=== PATIENT | male | born 2000 | race Caucasian/White ===

== ENCOUNTER → 2018-03-01 | Outpatient (CLI) | payer OTHER ==
[~2018-03-01] MED LIST: GADAVIST IV PRN
--- NOTE | 2018-03-01 14:03 | DIAGNOSTIC IMAGING REPORT ---
FLUOROSCOPIC GUIDED LEFT SHOULDER ARTHROGRAM FLUOROSCOPY TIME: 3 seconds. HISTORY: Left shoulder pain.. PROCEDURE: After obtaining written informed consent, the patient was placed supine on the fluoroscopy table. A suitable site for needle insertion was marked using fluoroscopic guidance. The left shoulder was prepped and draped in the usual sterile fashion. 1% lidocaine was used for skin, subcutaneous and deep soft tissue anesthesia. Under intermittent fluoroscopic guidance, a 22 gauge 2.5 inch spinal needle was inserted into the left glenohumeral joint. A total of 14 cc of one-to-one mixture of dilute Gadavist and Optiray 300 were injected. The needle was then removed. There were no apparent complications. The patient was transported to MR for further imaging. IMPRESSION: Fluoroscopic-guided left shoulder arthrogram without immediate complication. Total injected volume was 14 cc. MR portion of the examination will be dictated separately. Electronically signed by: Everardo Bergeron M.D. 03/01/2018 2:02 PM Dictated Date/Time: 03/01/2018 2:02 PM
--- NOTE | 2018-03-01 15:00 | DIAGNOSTIC IMAGING REPORT ---
L UPPER EXT JOINT WITH CLINICAL HISTORY: 17 years-old Male with LABRAL TEAR OF L SHOULDER. Acute left shoulder pain with history of vascular injury with forced abduction. Concern for acute labral tear. COMPARISON: None. TECHNIQUE: Multiplanar, multi sequence MRI of the left shoulder was performed following the intra-articular administration of solution containing gadolinium FINDINGS: ROTATOR CUFF: The tendons of the rotator cuff including the supraspinatus, infraspinatus, teres minor and subcapularis are intact. The rotator cuff musculature is normal in morphology and signal. BICEPS TENDON: The long-head biceps tendon is intact. No evidence of tendinosis. The biceps yulisa and anchor are intact. LABRUM: There is mild irregularity of the anteroinferior portions of the labrum nicely seen on images 9, 10 and 11 of series 5 with linear extension of contrast compatible with tear. There is no evidence for a paralabral cyst. There is suggestion of a small displaced labral fragment adjacent to the anteroinferior labrum, 3 mm. GLENOHUMERAL JOINT: The articular cartilage overlying the glenoid fossa is unremarkable. There is no loose body or debris present within the glenohumeral joint. ACROMIOCLAVICULAR JOINT: The AC joint is intact without significant degenerative change or mass effect. No evidence of os acromiale. No subacromial/subdeltoid bursitis. OUTLET SPACES: The suprascapular notch and quadrilateral space are without obstructing or space occupying lesions. BONE MARROW: No focal abnormality, fracture or marrow occupying lesion. SOFT TISSUES: The periarticular soft tissues are unremarkable. IMPRESSION: 1. Tear of the anteroinferior labrum. 2. Long head biceps tendon and rotator cuff appear unremarkable. 3. No acute fracture or focal bone marrow edema. The above report was generated using voice recognition software. It may contain grammatical, syntax or spelling errors. Electronically signed by: Lalo Sher M.D. 03/01/2018 2:59 PM Dictated Date/Time: 03/01/2018 2:39 PM
== END | disposition home or self-care (01) ==
LOC: C.MRIBC 12:30
PROVIDERS: ATTEND Family Medicine
DX: M25.312 Other instability, left shoulder (principal); S43.439A Superior glenoid labrum lesion of unspecified shoulder, initial encounter; X58.XXXA Exposure to other specified factors, initial encounter

== ENCOUNTER 2018-03-03 20:30 | Emergency (ER) | payer OTHER ==
[~2018-03-03] VITALS: Ht 177.8 cm; Wt 82.0 kg
[2018-03-03 20:41] VITALS: TEMP 36.8; Ht 177.8 cm; Wt 82.0 kg
[2018-03-03] MEDS ORDERED: ONDANSETRON INJ 2 MG/ML 2 ML VIAL IV STA (21:07)
[2018-03-03] MEDS ORDERED: METHYLPREDNISOLONE 125 MG VIAL IV STA (21:07)
[2018-03-03] MEDS ORDERED: FAMOTIDINE 20 MG TAB PO ONE (21:15)
--- NOTE | 2018-03-03 21:17 | EMERGENCY ROOM VISIT NOTE ---
History Report prepared by Norm: Eduardo Reeder Under the Supervision of: Dr. Jacky Sol M.D. First contact with patient: 20:52 Chief Complaint: ALLERGIC REACTION Stated Complaint: ALLERGIC REACTION Nursing Triage Summary: Patient presents to [facility] via BLS from [facility], states "I was eating a bowl of food that I have eaten plenty of times before. I started feeling like my throat was closing so I used my epipen. I have had anaphylaxis before. 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 Patient in no respiratory distress upon arrival. History of Present Illness The patient is a 17 year old white male with a past medical history of esophagitis, sesame seed, seafood, and nut allergy, tonsillectomy, and meniscus surgery who presents to the ED with a cc of a persistent allergic reaction beginning an hour ago. The patient states he went to [employer] and had a [place]. He reports he then went to [facility] and ate food he normally eats. The patient states that following eating he started to develop and allergic reaction. He notes it felt as if his throat was closing and he became short of breath. The patient states he used his EpiPen at 2014 and states he is no longer short of breath. He reports his throat does not feel as uncomfortable as previously. Positive resolved SOB, alcohol use. Negative tobacco or drug use, nausea, vomiting. Source of History: patient Onset: an hour ago Position: other (global) Symptom Intensity: 04/30 Timing: other (persistent) Modifying Factors (Relieving): other (Epipen) Associated Symptoms: + SOB, No nausea, No vomiting Review of Systems See HPI for pertinent positives and negatives. A total of ten systems were reviewed and were otherwise negative. Past Medical & Surgical Medical Problems: (1) Esophagitis (2) Nut allergy (3) Tear meniscus knee Surgical Problems: (1) Hx of tonsillectomy Family History Patient reports no known family medical history. Social History Smoking Status: Never Smoker Smokeless Tobacco Use: No Alcohol Use: occasionally Drug Use: none Marital Status: single Housing Status: lives with roommate Occupation Status: [employer] Current/Historical Medications Scheduled Prednisone (Prednisone), 50 MG PO DAILY Scheduled PRN Epinephrine (Epipen), 0.3 MG IM UD PRN for Allergic Reaction Allergies Coded Allergies: Nut Tree (Verified Allergy, Severe, ANAPHYLAXIS, 03/03/18) Peanut (Verified Allergy, Severe, ANAPHYLAXIS, 03/03/18) Penicillins (Verified Allergy, Severe, ANAPHYLAXIS, 03/03/18) Sesame Seed (Verified Allergy, Severe, ANAPHYLAXIS, 03/03/18) Uncoded Allergies: SEAFOOD (Allergy, Severe, ANAPHYLAXIS, 03/03/18) Physical Exam Vital Signs Date Time Temp Pulse Resp B/P (MAP) Pulse Ox O2 Delivery O2 Flow Rate FiO2 03/03/18 22:45 66 13 124/61 98 03/03/18 22:12 78 18 124/61 98 Room Air 03/03/18 21:24 97 Room Air 03/03/18 21:23 85 03/03/18 20:41 97 Room Air 03/03/18 20:41 36.8 93 18 147/77 97 Room Air Physical Exam GENERAL: Awake, alert, well-appearing, NAD HENT: Normocephalic, atraumatic. Posterior pharynx clear. EYES: Normal conjunctiva. Sclera non-icteric. NECK: Supple. No nuchal rigidity. FROM. No stridor over anterior neck. RESPIRATORY: CTAB, no rhonchi, wheezing, crackles CARDIAC: RRR, no MRG ABDOMEN: Soft, NTND, BS+ MSK: No chest wall TTP, no LE edema NEURO: GCS 15, CN 2-12 intact, moves all 4s on command SKIN: No rash or jaundice noted. No urticaria. Medical Decision & Procedures Medications Administered Medications (Trade) Dose Ordered Sig/Isabelle Route Start Time Stop Time Status Last Admin Dose Admin Ondansetron HCl (Zofran Inj) 4 mg NOW STAT IV 03/03/18 21:07 03/03/18 21:09 DC 03/03/18 21:20 4 MG Methylprednisolone Sodium Succinate (Solu-Medrol IV) 125 mg NOW STAT IV 03/03/18 21:07 03/03/18 21:09 DC 03/03/18 21:20 125 MG Famotidine (Pepcid Tab) 40 mg NOW ONCE PO 03/03/18 21:15 03/03/18 21:16 DC 03/03/18 21:20 40 MG Diphenhydramine HCl (Benadryl Cap) 25 mg NOW ONCE PO 03/03/18 21:15 03/03/18 21:16 DC 03/03/18 21:20 25 MG ED Course 2101: The patient was evaluated in room B07. A complete history and physical exam was performed. 2210: I reevaluated the patient. Discussed results and discharge instructions: He verbalized understanding and agreement. The patient is ready for discharge. Medical Decision Nursing notes reviewed. Ancillary studies and prior records reviewed. The patient is a 17 year old white male with a past medical history of esophagitis, sesame seed, seafood, and nut allergy, tonsillectomy, and meniscus surgery who presents to the ED with a cc of a persistent allergic reaction beginning an hour ago The patient's presentation and history were concerning for etiologies such as allergic reaction, anaphylaxis, urticaria, Germain-Bill syndrome, toxic epidermal necrolysis, erythema multiforme, cellulitis, as well as others were entertained. Patient was seen and evaluated the bedside. Patient reportedly had drank a bottle high blast had some simple leg and noticed that he felt like his throat was closing so he self administered an EpiPen. Patient currently is otherwise asymptomatic. Patient has no wheezing no stridor the posterior pharynx is clear and the patient has no GI upset, nausea, vomiting, or abdominal pain. Patient also has no noted urticaria. Patient does not believe he consumed any sesame seeds, peanuts, or seafood however there may have been some cross contamination. Patient was treated with steroids Pepcid, and Benadryl. The patient was reassessed approximately 2 hours prior to his initial symptoms. The patient is not stridulous, clear to auscultation bilaterally and without any urticaria. Patient was given prescriptions for prednisone as well as an EpiPen for home. Patient was deemed suitable for outpatient follow-up and treatment at this time. Patient was given strict follow-up, discharge, and return precautions. All questions were answered. Patient was deemed suitable for outpatient follow-up at this time. Patient agreed with the plan of care and was safely discharged home. Medication Reconcilliation Current Medication List: was personally reviewed by me Blood Pressure Screening Patient's blood pressure: Elevated blood pressure Blood pressure disposition: Elevated BP felt to be situational Impression Primary Impression: Allergic reaction Scribe Attestation The scribe's documentation has been prepared under my direction and personally reviewed by me in its entirety. I confirm that the note above accurately reflects all work, treatment, procedures, and medical decision making performed by me. Departure Information Dispostion Home / Self-Care Prescriptions Prednisone (PREDNISONE) 50 Mg Tab 50 MG PO DAILY for 4 Days, #4 TAB Prov: Jacky Sol M.D. 03/03/18 Epinephrine (EPIPEN) 0.3 Mg/0.3 Ml Inj 0.3 MG IM UD Y for Allergic Reaction, #1 PEN Prov: Jacky Sol M.D. 03/03/18 Referrals No Doctor, Assigned (PCP) Patient Instructions ED Allergic React Food, My [facility] [place] [facility] Additional Instructions Please return to the emergency department if you have worsening or recurrent symptoms not amenable to at-home treatment. Please call for a follow-up appointment with her primary care physician. Please take your medications as prescribed. If you have other concerns and/or complaints please feel free to also call your primary care physician's office or return the ED for further evaluation, management, and treatment. You may take 600 mg Ibuprofen every 6 hours as needed for pain with food for no more than 2 consecutive days. You may take tylenol 1000 mg every 6 hours as needed for pain. You may take motrin and tylenol separately or at the same time. Take your medications as prescribed. You have been examined and treated today on an emergency basis only. This is not a substitute for, or an effort to provide, complete comprehensive medical care. It is impossible to recognize and treat all injuries or illnesses in a single emergency department visit. It is therefore important that you follow up closely with [facility], your PCP, and/or your specialist(s). Call as soon as possible for an appointment. Thank you for your time and consideration. I look forward to speaking with you again soon. Please don't hesitate to call us if you have any questions. Problem Qualifiers Primary Impression: Allergic reaction Encounter type: initial encounter Qualified Codes: T78.40XA - Allergy, unspecified, initial encounter
[2018-03-03 21:24] VITALS: O2SAT 97
[2018-03-03] MEDS ORDERED: PRED50TA PO (22:28)
[2018-03-03] MEDS ORDERED: EPP3/2 IM (22:28)
[2018-03-03 22:45] VITALS: BP 124/61; PULSE 66; O2SAT 98
== END 2018-03-03 22:47 | disposition home or self-care (01) ==
LOC: EDBD 20:30 → C.EDB 20:30
DX: T78.40XA Allergy, unspecified, initial encounter (principal); X58.XXXA Exposure to other specified factors, initial encounter; Z91.010 Allergy to peanuts; Z88.0 Allergy status to penicillin; Z91.018 Allergy to other foods; Z91.013 Allergy to seafood